=== PATIENT | female | born 1960 | race Caucasian/White ===

== ENCOUNTER 2017-06-22 16:35 | Emergency (ER) | payer OTHER ==
[2017-06-22 16:43] VITALS: BMI 33.6
[2017-06-22 16:55] VITALS: RESP 18; TEMP 97.8
[2017-06-22] MEDS ORDERED: Oxycodone/Acetaminophen 5/325 mg Tab PO STA (17:34)
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
[2017-06-22 18:49] LABS: CALCIUM 10.3 mg/dL (8.4-10.5)
[2017-06-22 20:33] VITALS: BP 142/87; PULSE 62; O2SAT 100
== END 2017-06-22 19:15 | disposition home or self-care (01) ==
LOC: ED 16:35
DX: S16.1XXA Strain of muscle, fascia and tendon at neck level, initial encounter (principal); V43.62XA Car passenger injured in collision with other type car in traffic accident, initial encounter; Y92.410 Unspecified street and highway as the place of occurrence of the external cause; E07.9 Disorder of thyroid, unspecified; E11.22 Type 2 diabetes mellitus with diabetic chronic kidney disease; N18.6 End stage renal disease; Z99.2 Dependence on renal dialysis